=== PATIENT | male | born 1990 | race Caucasian/White ===

== ENCOUNTER 2016-12-14 18:02 | Emergency (ER) | payer BC, OTHER ==
[2016-12-14] MEDS ORDERED: Proparacaine 0.5% Ophth Soln 15 ML Bottle EYELF ONE (18:11)
--- NOTE | 2016-12-14 18:23 | EDM.PDOC ---
ED HPI GENERAL MEDICAL PROBLEM - General Chief Complaint: Eye Problems Stated Complaint: METAL IN LEFT EYE Time Seen by Provider: 12/14/16 18:12 Source of Information: Reports: Patient History Limitations: Reports: No Limitations - History of Present Illness INITIAL COMMENTS - FREE TEXT/NARRATIVE: HISTORY AND PHYSICAL: []26-year-old male presents with a piece of metal in his left eye History of Present Illness: []Patient was grinding on metal got one hour before coming to ER but felt a piece into his eye was pretty aggressive rinsing it out was unable to get the piece out was at the 9 o'clock position Review of Systems: As per history of present illness and below otherwise all systems reviewed and negative. Past medical history: As per history of present illness and as reviewed below otherwise noncontributory. Surgical history: As per history of present illness and as reviewed below otherwise noncontributory. Social history: No reported history of drug or alcohol abuse. Family history: As per history of present illness and as reviewed below otherwise noncontributory. Physical exam: Alert and oriented male answering questions appropriately HEENT: Atraumatic, normocehpalic, pupils reactive, negative for conjunctival pallor or scleral icterus, mucous membranes moist, throat clear, neck supple, nontender, trachea midline. Lungs: Clear to auscultation, breath sounds equal bilaterally, chest non tender. Heart: S1S2, regular, negative for clicks, rubs, or JVD. Abdomen: Soft, nondistended, nontender. Negative for masses or hepatossplenmegaly. Negative for costovertebral tenderness. Pelvis: Stable nontender. Genitourinary: Deferred. Rectal: Deferred Extremities: Atraumatic, negative for cords or calf pain. Neurovascular unremarkable. Neuro: Awake, alert, oriented. Cranial nerves II through XII unremarkable. Cerebellum unremarkable. Motor and sensory unremarkable throughout. Exam nonfocal. Proparacaine was instilled into his eye and then a fluorescein strip Cabrera lamp was utilized small little speck of metal at the 9 o'clock position was removed with a Q-tip. Patient tolerated procedure well Diagnostics: [Cabrera lamp first seen strip/] Therapeutics: [Proparacaine ophthalmic drops/ saline flushes 3] Impression: [Foreign-body to left eye removed home] Plan: [Home Follow us for an ophthalmic ointment 1 inch to lower lid times daily for the next 3-4 days If symptoms worsen your vision changes adversely please return for reevaluation] Definitive disposition and diagnosis as appropriate pending reevaluation and review of above. Onset: Today, Sudden Duration: Hour(s): (1) - Related Data Allergies Allergy/AdvReac Type Severity Reaction Status Date / Time No Known Allergies Allergy Verified 12/14/16 18:06 Past Medical History - Past Health History Medical/Surgical History: Denies Medical/Surgical History Respiratory History: Reports: Other (See Below) Other Respiratory History: Currently on antibiotics for respiratory infection - Infectious Disease History Infectious Disease History: Reports: Chicken Pox Social & Family History - Family History Family Medical History: Noncontributory - Tobacco Use Smoking Status *Q: Current Every Day Smoker Years of Tobacco use: 2 Packs/Tins Daily: 0.5 - Caffeine Use Caffeine Use: Reports: None - Recreational Drug Use Recreational Drug Use: No Recreational Drug Type: Reports: Marijuana/Hashish Recreational Drug Use Frequency: Daily ED ROS GENERAL - Review of Systems Review Of Systems: ROS reveals no pertinent complaints other than HPI. ED EXAM GENERAL W FULL EYE - Physical Exam Exam: See Below (See dictation) Course - Orders/Labs/Meds Meds: Medications Discontinued Medications Generic Name Dose Route Start Last Admin Trade Name Freq PRN Reason Stop Dose Admin Proparacaine HCl 2 ml 12/14/16 18:11 Proparacaine 0.5% Ophth Soln EYELF 12/14/16 18:12 ONETIME ONE Departure - Departure Time of Disposition: 18:33 Disposition: Home, Self-Care 01 Condition: Good Clinical Impression: Foreign body of left eye Qualifiers: Encounter type: initial encounter Qualified Code(s): T15.92XA - Foreign body on external eye, part unspecified, left eye, initial encounter - Discharge Information Instructions: Eye Foreign Body, [id number] Forms: ED Department Discharge Additional Instructions: The following information is given to patients seen in the emergency department who are being discharged to home. This information is to outline your options for follow-up care. We provide all patients seen in our emergency department with a follow-up referral. The need for follow-up, as well as the timing and circumstances, are variable depending upon the specifics of your emergency department visit. If you don't have a primary care physician on staff, we will provide you with a referral. We always advise you to contact your personal physician following an emergency department visit to inform them of the circumstance of the visit and for follow-up with them and/or the need for any referrals to a consulting specialist. The emergency department will also refer you to a specialist when appropriate. This referral assures that you have the opportunity for followup care with a specialist. All of these measure are taken in an effort to provide you with optimal care, which includes your followup. Under all circumstances we always encourage you to contact your private physician who remains a resource for coordinating your care. When calling for followup care, please make the office aware that this follow-up is from your recent emergency room visit. If for any reason you are refused follow-up, please contact the [facility] emergency department at and asked to speak to the emergency department charge nurse. Antibiotic ointment has been applied to your eye please utilizes 3 times a day for the next 3-4 days Your tetanus status is up-to-date Return for follow-up if symptoms worsen
[2016-12-14 18:52] VITALS: BP 112/67
[2016-12-14] MEDS ORDERED: Bacitracin/Polymyxin B Ophth Oint 3.5 GM Tube EYELF SCH (22:00)
== END 2016-12-14 18:45 | disposition home or self-care (01) ==
LOC: MW.ED 18:02
DX: T15.92XA Foreign body on external eye, part unspecified, left eye, initial encounter (principal); F17.210 Nicotine dependence, cigarettes, uncomplicated
CPT/HCPCS: 65205; 99283

== ENCOUNTER 2020-07-29 05:21 | Emergency (ER) | payer BC ==
[2020-07-29] MEDS ORDERED: Sodium Chloride 0.9% 2.5 ML Syringe FLUSH PRN (05:56)
[2020-07-29] MEDS ORDERED: fentaNYL 50 MCG/ML SDV IVPUSH ONE (05:56)
[2020-07-29] MEDS ORDERED: Sodium Chloride 0.9% 10 ML Syringe FLUSH PRN (05:56)
[2020-07-29] MEDS ORDERED: Ondansetron 4 MG/2 ML SDV IVPUSH ONE (05:56)
[2020-07-29] MEDS ORDERED: Sodium Chloride 0.9% 1,000 ML IV ONE (05:56)
--- NOTE | 2020-07-29 05:56 | EDM.PDOC ---
ED HPI GENERAL MEDICAL PROBLEM - General Chief Complaint: General Stated Complaint: HEMMORHOIDS Time Seen by Provider: 07/29/20 05:46 - History of Present Illness INITIAL COMMENTS - FREE TEXT/NARRATIVE: HISTORY AND PHYSICAL: History of present illness: This is a 30-year-old healthy gentleman with no history significant for hypertension, diabetes, liver, lung, kidney problems who presents ER today complaining of rectal pain x5 to 6 days. Patient reports that he self diagnosed himself with hemorrhoids and has been using Preparation H as well as witch kim wipes without any improvement in his discomfort. Patient denies any recent fevers, shakes, chills, nausea, vomiting, diarrhea, dysuria, frequency, urgency, constipation. Patient denies any rectal sex or anal manipulation. Patient denies any prior history of pilonidal abscesses. Patient denies any history of inflammatory bowel disease. Patient denies any prior abdominal or chest surgeries. Patient admits to recreational marijuana use. Patient reports he drinks alcohol approximately once a week. Last alcohol use was yesterday evening. Patient denies tobacco use. Patient has no known drug allergies. Patient is currently not on any medications. Review of systems: As per history of present illness and below otherwise all systems reviewed and negative. Past medical history: As per history of present illness and as reviewed below otherwise noncontrib utory. Surgical history: As per history of present illness and as reviewed below otherwise noncontributory. Social history: No reported history of drug or alcohol abuse. Family history: As per history of present illness and as reviewed below otherwise noncontributory. Physical exam: This patient was seen and evaluated during the 2019 SARS-CoV-2 novel coronavirus pandemic period. Community viral transmission is ongoing at time of this encounter and the emergency department is operating under pandemic response procedures. Constitutional: Patient is oriented to person, place, and time. Appears well- developed and well-nourished. No distress. HEENT: Moist mucous membranes Head: Normocephalic and atraumatic Eyes: Right eye exhibits no discharge. Left eye exhibits no discharge. No scleral icterus Neck: Normal range of motion. No tracheal deviation present. Cardiovascular: Normal rate and regular rhythm. Pulmonary: Effort normal, no respiratory distress. Abdominal: No distention Musculoskeletal: Normal range of motion Neurologic: Alert and oriented to person, place and time. Skin: [place], warm and dry. Psychiatric: Normal mood and affect. Behavior is normal. Judgment and thought content normal. Nursing note and vital signs have been reviewed Rectal exam: Patient with a tender fluctuant appearing mass at approximately the 6 o'clock position at his rectum. This is extremely tender. On rectal exam I am not able to appreciate any significant fluctuance within his internal rectal cavity. Diagnostics: CBC, CMP, CT the abdomen pelvis with IV contrast Therapeutics: Fentanyl 50 mg IV, Zofran 4 mg IV, NSS x1 L Assessment and plan: This is a 30-year-old gentleman who presents ER today with rectal pain x5 days. Patient has been treating himself for presumed hemorrhoids with Preparation H and witch kim pads without any improvement in symptoms. On exam in the ER today it appears that the area of induration is most likely consistent with a possible abscess over an external hemorrhoid. I am not able to appreciate the extent of the abscess but it is right at the external anus. We will obtain labs including a CBC, CMP. We will get a CBC of the abdomen pelvis with IV contrast to evaluate the extent of the abscess. 6:55 am: Care signed over to oncoming physician at [address] scan report and final disposition. Patient likely has a rectal versus perirectal abscess and may need surgical consultation depending on CT scan report. Definitive disposition and diagnosis as appropriate pending reevaluation and review of above. butt Pain Score (Numeric/FACES): 7 - Related Data Allergies Allergy/AdvReac Type Severity Reaction Status Date / Time No Known Allergies Allergy Verified 07/29/20 05:30 Home Meds: Home Meds . [No Known Home Meds] 03/21/18 [History] Past Medical History - Past Health History Medical/Surgical History: Denies Medical/Surgical History HEENT History: Reports: Impaired Vision Other HEENT History: wears glasses Respiratory History: Reports: Other (See Below) Other Respiratory History: Currently on antibiotics for respiratory infection - Infectious Disease History Infectious Disease History: Reports: Chicken Pox, Shingles Social & Family History - Family History Family Medical History: No Pertinent Family History - Tobacco Use Tobacco Use Status *Q: Never Tobacco User - Caffeine Use Caffeine Use: Reports: None - Recreational Drug Use Recreational Drug Use: Yes Recreational Drug Type: Reports: Marijuana/Hashish Recreational Drug Use Frequency: Socially ED ROS GENERAL - Review of Systems Review Of Systems: See Below ED EXAM, GENERAL - Physical Exam Exam: See Below Course - Vital Signs Last Recorded V/S: Last Vital Signs Temp 99.7 F 07/29/20 05:29 Pulse 94 07/29/20 05:29 Resp 16 07/29/20 05:29 BP 114/84 07/29/20 05:29 Pulse Ox 98 07/29/20 05:29 - Orders/Labs/Meds Orders: Active Orders 24 hr Category Date Time Status Abdomen Pelvis w Cont [CT] Stat Exams 07/29/20 05:57 Ordered COMPREHENSIVE METABOLIC PN,CMP [CHEM] Stat Lab 07/29/20 06:12 Received Sodium Chloride 0.9% [Normal Saline] 1,000 ml Med 07/29/20 05:56 Active IV .Bolus Sodium Chloride 0.9% [Saline Flush] Med 07/29/20 05:56 Active 10 ml FLUSH ASDIRECTED PRN Sodium Chloride 0.9% [Saline Flush] Med 07/29/20 05:56 Active 2.5 ml FLUSH ASDIRECTED PRN Saline Lock Insert [OM.PC] Stat Oth 07/29/20 05:57 Ordered Medication Orders Sodium Chloride (Normal Saline) 1,000 mls @ 999 mls/hr IV .Bolus ONE Stop: 07/29/20 06:56 Last Admin: 07/29/20 06:11 Dose: 999 mls/hr Documented by: LASHONDA Sodium Chloride (Sodium Chloride 0.9% 10 Ml Syringe) 10 ml FLUSH ASDIRECTED PRN PRN Reason: Keep Vein Open Last Admin: 07/29/20 06:12 Dose: 10 ml Documented by: LASHONDA Sodium Chloride (Sodium Chloride 0.9% 2.5 Ml Syringe) 2.5 ml FLUSH ASDIRECTED PRN PRN Reason: Keep Vein Open Last Admin: 07/29/20 06:12 Dose: 2.5 ml Documented by: LASHONDA Labs: Laboratory Tests 07/29/20 Range/Units 06:12 WBC 10.65 (4.0-11.0) K/uL RBC 4.64 (4.50-5.90) M/uL Hgb 14.0 (13.0-17.0) g/dL Hct 41.3 (38.0-50.0) % MCV 89.0 (80.0-98.0) fL MCH 30.2 (27.0-32.0) pg MCHC 33.9 (31.0-37.0) g/dL RDW Std Deviation 41.3 (28.0-62.0) fl RDW Coeff of Endy 13 (11.0-15.0) % Plt Count 284 (150-400) K/uL MPV 10.70 (7.40-12.00) fL Neut % (Auto) 77.3 (48.0-80.0) % Lymph % (Auto) 12.5 L (16.0-40.0) % [place] % (Auto) 7.8 (0.0-15.0) % Eos % (Auto) 1.8 (0.0-7.0) % Baso % (Auto) 0.6 (0.0-1.5) % Neut # (Auto) 8.2 H (1.4-5.7) K/uL Lymph # (Auto) 1.3 (0.6-2.4) K/uL [place] # (Auto) 0.8 (0.0-0.8) K/uL Eos # (Auto) 0.2 (0.0-0.7) K/uL Baso # (Auto) 0.1 (0.0-0.1) K/uL Nucleated RBC % 0.0 /100WBC Nucleated RBCs # 0 K/uL Meds: Medications Generic Name Dose Route Start Last Admin Trade Name Freq PRN Reason Stop Dose Admin Sodium Chloride 1,000 mls @ 999 mls/hr 07/29/20 05:56 07/29/20 06:11 Normal Saline IV 07/29/20 06:56 999 mls/hr .Bolus ONE Administration Sodium Chloride 10 ml 07/29/20 05:56 07/29/20 06:12 Sodium Chloride 0.9% 10 Ml Syringe FLUSH 10 ml ASDIRECTED PRN Administration Keep Vein Open Sodium Chloride 2.5 ml 07/29/20 05:56 07/29/20 06:12 Sodium Chloride 0.9% 2.5 Ml Syringe FLUSH 2.5 ml ASDIRECTED PRN Administration Keep Vein Open Discontinued Medications Generic Name Dose Route Start Last Admin Trade Name Freq PRN Reason Stop Dose Admin Fentanyl 50 mcg 07/29/20 05:56 07/29/20 06:12 Fentanyl 50 Mcg/Ml Sdv IVPUSH 07/29/20 05:57 50 mcg ONETIME ONE Administration Ondansetron HCl 4 mg 07/29/20 05:56 07/29/20 06:12 Ondansetron 4 Mg/2 Ml Sdv IVPUSH 07/29/20 05:57 4 mg ONETIME ONE Administration Departure - Departure Time of Disposition: 07:00 Disposition: Still A Patient 30 Condition: Good Clinical Impression: Rectal pain - Discharge Information Referrals: Tatiana Wood DO [Primary Care Provider] - Forms: ED Department Discharge Sepsis Event Note (ED) - Evaluation Sepsis Screening Result: No Definite Risk - Focused Exam Vital Signs: Vital Signs Temp Pulse Resp BP Pulse Ox 07/29/20 05:29 99.7 F 94 16 114/84 98 - My Orders Last 24 Hours: My Active Orders 07/29/20 05:56 Sodium Chloride 0.9% [Normal Saline] 1,000 ml IV .Bolus Sodium Chloride 0.9% [Saline Flush] 10 ml FLUSH ASDIRECTED PRN Sodium Chloride 0.9% [Saline Flush] 2.5 ml FLUSH ASDIRECTED PRN 07/29/20 05:57 Abdomen Pelvis w Cont [CT] Stat Saline Lock Insert [OM.PC] Stat 07/29/20 06:12 COMPREHENSIVE METABOLIC PN,CMP [CHEM] Stat - Assessment/Plan Last 24 Hours: My Active Orders 07/29/20 05:56 Sodium Chloride 0.9% [Normal Saline] 1,000 ml IV .Bolus Sodium Chloride 0.9% [Saline Flush] 10 ml FLUSH ASDIRECTED PRN Sodium Chloride 0.9% [Saline Flush] 2.5 ml FLUSH ASDIRECTED PRN 07/29/20 05:57 Abdomen Pelvis w Cont [CT] Stat Saline Lock Insert [OM.PC] Stat 07/29/20 06:12 COMPREHENSIVE METABOLIC PN,CMP [CHEM] Stat
[2020-07-29 06:48] LABS: BLOOD UREA NITROGEN,BUN 12 mg/dL (7.0-18.0); CARBON DIOXIDE,CO2 29.8 mmol/L (21.0-32.0); CHLORIDE,CL 103 mmol/L (98-107); GLUCOSE RANDOM 91 mg/dL (74-106); SODIUM,NA 138 mmol/L (136-148)
[2020-07-29] MEDS ORDERED: Iopamidol 755 MG/ML 500 ML Multipack Bottle IVPUSH STA (07:07)
--- NOTE | 2020-07-29 07:54 | CT ---
INDICATION: Rectal/perirectal abscess. TECHNIQUE: CT abdomen and pelvis acquired with 100 cc Isovue 370 IV contrast. COMPARISON: None. FINDINGS: Lower chest: Unremarkable. Liver: Unremarkable. Normal in size and attenuation. No masses. Gallbladder and bile ducts: Unremarkable. No stones or inflammation. No biliary dilatation. Pancreas: Unremarkable. No mass or inflammation. Spleen: Unremarkable. Normal in size. No masses. Adrenal glands: Unremarkable. No nodules. Kidneys: Single small nonobstructive right renal stone. Few small benign-appearing cysts. Otherwise unremarkable. GI tract: There is a 2 x 1 cm thick-walled fluid collection posterior to the rectum in the midline as visualized on series 201, image 170. This is consistent with a perirectal abscess. Normal appendix. Vasculature: Unremarkable. Mesenteric arteries are patent. Lymph nodes: No lymphadenopathy. Omentum/Peritoneum/Abdominal Wall: Unremarkable. No sign of mass or infiltration. No free air or significant free fluid. Pelvis: Unremarkable. Bones: Unremarkable for age. IMPRESSION: 2 x 1 cm posterior midline perirectal abscess. Remainder of the exam is unremarkable. Please note that all CT scans at this facility use dose modulation, iterative reconstruction, and/or weight-based dosing when appropriate to reduce radiation dose to as low as reasonably achievable. Dictated by Misael Mcghee MD @ Jul 29 2020 7:47AM Signed by Dr. Misael Mcghee @ Jul 29 2020 7:53AM
[2020-07-29] MEDS ORDERED: Lidocaine 1% 10 ML MDV INFILT ONE (08:26)
[2020-07-29] MEDS ORDERED: Cephalexin 500 MG Cap PO ONE (08:43)
[2020-07-29] MEDS ORDERED: Sulfamethoxazole/Trimethoprim 800-160 MG Tab PO ONE (08:43)
--- NOTE | 2020-07-29 08:49 | EDM.PDOC ---
ED HPI GENERAL MEDICAL PROBLEM - General Chief Complaint: General Stated Complaint: HEMMORHOIDS Time Seen by Provider: 07/29/20 05:46 Source of Information: Reports: Patient History Limitations: Reports: No Limitations - History of Present Illness INITIAL COMMENTS - FREE TEXT/NARRATIVE: HISTORY AND PHYSICAL: History of present illness: This is a 30-year-old healthy gentleman with no history significant for hypertension, diabetes, liver, lung, kidney problems who presents ER today complaining of rectal pain x5 to 6 days. Patient reports that he self diagnosed himself with hemorrhoids and has been using Preparation H as well as witch kim wipes without any improvement in his discomfort. Patient denies any recent fevers, shakes, chills, nausea, vomiting, diarrhea, dysuria, frequency, urgency, constipation. Patient denies any rectal sex or anal manipulation. Patient denies any prior history of pilonidal abscesses. Patient denies any history of inflammatory bowel disease. Patient denies any prior abdominal or chest surgeries. Patient admits to recreational marijuana use. Patient reports he drinks alcohol approximately once a week. Last alcohol use was yesterday evening. Patient denies tobacco use. Patient has no known drug allergies. Patient is currently not on any medications. Review of systems: As per history of present illness and below otherwise all systems reviewed and negative. Past medical history: As per history of present illness and as reviewed below otherwise noncontributory. Surgical history: As per history of present illness and as reviewed below otherwise noncontributory. Social history: No reported history of drug or alcohol abuse. Family history: As per history of present illness and as reviewed below otherwise noncont ributory. Physical exam: This patient was seen and evaluated during the 2019 SARS-CoV-2 novel coronavirus pandemic period. Community viral transmission is ongoing at time of this encounter and the emergency department is operating under pandemic response procedures. Constitutional: Patient is oriented to person, place, and time. Appears well- developed and well-nourished. No distress. HEENT: Moist mucous membranes Head: Normocephalic and atraumatic Eyes: Right eye exhibits no discharge. Left eye exhibits no discharge. No scleral icterus Neck: Normal range of motion. No tracheal deviation present. Cardiovascular: Normal rate and regular rhythm. Pulmonary: Effort normal, no respiratory distress. Abdominal: No distention Musculoskeletal: Normal range of motion Neurologic: Alert and oriented to person, place and time. Skin: Mcgrew, warm and dry. Psychiatric: Normal mood and affect. Behavior is normal. Judgment and thought content normal. Nursing note and vital signs have been reviewed Rectal exam: Patient with a tender fluctuant appearing mass at approximately the 6 o'clock position at his rectum. This is extremely tender. On rectal exam I am not able to appreciate any significant fluctuance within his internal rectal cavity. Diagnostics: CBC, CMP, CT the abdomen pelvis with IV contrast Therapeutics: Fentanyl 50 mg IV, Zofran 4 mg IV, NSS x1 L Assessment and plan: This is a 30-year-old gentleman who presents ER today with rectal pain x5 days. Patient has been treating himself for presumed hemorrhoids with Preparation H and witch kim pads without any improvement in symptoms. On exam in the ER today it appears that the area of induration is most likely consistent with a possible abscess over an external hemorrhoid. I am not able to appreciate the extent of the abscess but it is right at the external anus. We will obtain labs including a CBC, CMP. We will get a CBC of the abdomen pelvis with IV contrast to evaluate the extent of the abscess. 6:55 am: Care signed over to oncoming physician at [address] scan report and final disposition. Patient likely has a rectal versus perirectal abscess and may need surgical consultation depending on CT scan report. Definitive disposition and diagnosis as appropriate pending reevaluation and review of above. butt Pain Score (Numeric/FACES): 7 - Related Data Allergies Allergy/AdvReac Type Severity Reaction Status Date / Time No Known Allergies Allergy Verified 07/29/20 05:30 Home Meds: Home Meds Sulfamethoxazole/Trimethoprim [Bactrim Ds Tablet] 1 each PO BID 5 Days #10 tablet 07/29/20 [Rx] cephALEXin [Keflex] 500 mg PO Q6HR 5 Days #20 cap 07/29/20 [Rx] Past Medical History - Past Health History Medical/Surgical History: Denies Medical/Surgical History HEENT History: Reports: Impaired Vision Other HEENT History: wears glasses Respiratory History: Reports: Other (See Below) Other Respiratory History: Currently on antibiotics for respiratory infection - Infectious Disease History Infectious Disease History: Reports: Chicken Pox, Shingles Social & Family History - Family History Family Medical History: No Pertinent Family History - Tobacco Use Tobacco Use Status *Q: Never Tobacco User - Caffeine Use Caffeine Use: Reports: None - Recreational Drug Use Recreational Drug Use: Yes Recreational Drug Type: Reports: Marijuana/Hashish Recreational Drug Use Frequency: Socially ED ROS GENERAL - Review of Systems Review Of Systems: See Below ED EXAM, GENERAL - Physical Exam Exam: See Below Free Text/Narrative:: HISTORY AND PHYSICAL: History of present illness: This is a 30-year-old healthy gentleman with no history significant for hypertension, diabetes, liver, lung, kidney problems who presents ER today complaining of rectal pain x5 to 6 days. Patient reports that he self diagnosed himself with hemorrhoids and has been using Preparation H as well as witch kim wipes without any improvement in his discomfort. Patient denies any recent fevers, shakes, chills, nausea, vomiting, diarrhea, dysuria, frequency, urgency, constipation. Patient denies any rectal sex or anal manipulation. Patient denies any prior history of pilonidal abscesses. Patient denies any history of inflammatory bowel disease. Patient denies any prior abdominal or chest surgeries. Patient admits to recreational marijuana use. Patient reports he drinks alcohol approximately once a week. Last alcohol use was yesterday evening. Patient denies tobacco use. Patient has no known drug allergies. Patient is currently not on any medications. Review of systems: As per history of present illness and below otherwise all systems reviewed and negative. Past medical history: As per history of present illness and as reviewed below otherwise noncontributory. Surgical history: As per history of present illness and as reviewed below otherwise noncontributory. Social history: No reported history of drug or alcohol abuse. Family history: As per history of present illness and as reviewed below otherwise noncontributory. Physical exam: This patient was seen and evaluated during the 2019 SARS-CoV-2 novel coronavirus pandemic period. Community viral transmission is ongoing at time of this encounter and the emergency department is operating under pandemic response procedures. Constitutional: Patient is oriented to person, place, and time. Appears well- developed and well-nourished. No distress. HEENT: Moist mucous membranes Head: Normocephalic and atraumatic Eyes: Right eye exhibits no discharge. Left eye exhibits no discharge. No scleral icterus Neck: Normal range of motion. No tracheal deviation present. Cardiovascular: Normal rate and regular rhythm. Pulmonary: Effort normal, no respiratory distress. Abdominal: No distention Musculoskeletal: Normal range of motion Neurologic: Alert and oriented to person, place and time. Skin: Mcgrew, warm and dry. Psychiatric: Normal mood and affect. Behavior is normal. Judgment and thought content normal. Nursing note and vital signs have been reviewed Rectal exam: Patient with a tender fluctuant appearing mass at approximately the 6 o'clock position at his rectum. This is extremely tender. On rectal exam I am not able to appreciate any significant fluctuance within his internal rectal cavity. Diagnostics: CBC, CMP, CT the abdomen pelvis with IV contrast Therapeutics: Fentanyl 50 mg IV, Zofran 4 mg IV, NSS x1 L Assessment and plan: This is a 30-year-old gentleman who presents ER today with rectal pain x5 days. Patient has been treating himself for presumed hemorrhoids with Preparation H and witch kim pads without any improvement in symptoms. On exam in the ER today it appears that the area of induration is most likely consistent with a possible abscess over an external hemorrhoid. I am not able to appreciate the extent of the abscess but it is right at the external anus. We will obtain labs including a CBC, CMP. We will get a CBC of the abdomen pelvis with IV contrast to evaluate the extent of the abscess. 6:55 am: Care signed over to oncoming physician at [address] scan report and final disposition. Patient likely has a rectal versus perirectal abscess and may need surgical consultation depending on CT scan report. Definitive disposition and diagnosis as appropriate pending reevaluation and review of above. ED GENERAL MEDICAL PROCEDURES - Additional/Other Procedure(s) Other (Free Text) Procedure(s): Patient had I&D done of the perirectal abscess. Patient signed consent a timeout was performed as well. Abscess related into the cyst o'clock position. We used 1% lidocaine no epi. Use 11 blade with small incision good amount of pus return. Patient was packed. Patient tolerated procedure well. Course - Vital Signs Last Recorded V/S: Last Vital Signs Temp 99.7 F 07/29/20 05:29 Pulse 79 07/29/20 07:15 Resp 15 07/29/20 07:15 BP 95/46 L 07/29/20 07:15 Pulse Ox 97 07/29/20 07:15 - Orders/Labs/Meds Orders: Active Orders 24 hr Category Date Time Status Sodium Chloride 0.9% [Saline Flush] Med 07/29/20 05:56 Active 10 ml FLUSH ASDIRECTED PRN Sodium Chloride 0.9% [Saline Flush] Med 07/29/20 05:56 Active 2.5 ml FLUSH ASDIRECTED PRN Saline Lock Insert [OM.PC] Stat Oth 07/29/20 05:57 Ordered Medication Orders Sodium Chloride (Sodium Chloride 0.9% 10 Ml Syringe) 10 ml FLUSH ASDIRECTED PRN PRN Reason: Keep Vein Open Last Admin: 07/29/20 06:12 Dose: 10 ml Documented by: LASHONDA Sodium Chloride (Sodium Chloride 0.9% 2.5 Ml Syringe) 2.5 ml FLUSH ASDIRECTED PRN PRN Reason: Keep Vein Open Last Admin: 07/29/20 06:12 Dose: 2.5 ml Documented by: LASHONDA Labs: Laboratory Tests 07/29/20 07/29/20 Range/Units 06:12 06:12 WBC 10.65 (4.0-11.0) K/uL RBC 4.64 (4.50-5.90) M/uL Hgb 14.0 (13.0-17.0) g/dL Hct 41.3 (38.0-50.0) % MCV 89.0 (80.0-98.0) fL MCH 30.2 (27.0-32.0) pg MCHC 33.9 (31.0-37.0) g/dL RDW Std Deviation 41.3 (28.0-62.0) fl RDW Coeff of Nedy 13 (11.0-15.0) % Plt Count 284 (150-400) K/uL MPV 10.70 (7.40-12.00) fL Neut % (Auto) 77.3 (48.0-80.0) % Lymph % (Auto) 12.5 L (16.0-40.0) % [place]berson % (Auto) 7.8 (0.0-15.0) % Eos % (Auto) 1.8 (0.0-7.0) % Baso % (Auto) 0.6 (0.0-1.5) % Neut # (Auto) 8.2 H (1.4-5.7) K/uL Lymph # (Auto) 1.3 (0.6-2.4) K/uL [place]on # (Auto) 0.8 (0.0-0.8) K/uL Eos # (Auto) 0.2 (0.0-0.7) K/uL Baso # (Auto) 0.1 (0.0-0.1) K/uL Nucleated RBC % 0.0 /100WBC Nucleated RBCs # 0 K/uL Sodium 138 (136-148) mmol/L Potassium 4.0 (3.5-5.1) mmol/L Chloride 103 (98-107) mmol/L Carbon Dioxide 29.8 (21.0-32.0) mmol/L BUN 12 (7.0-18.0) mg/dL Creatinine 1.1 (0.8-1.3) mg/dL Est Cr Clr Drug Dosing 87.81 mL/min Estimated GFR (MDRD) > 60.0 ml/min Glucose 91 (74-106) mg/dL Calcium 8.6 (8.5-10.1) mg/dL Total Bilirubin 1.4 H (0.2-1.0) mg/dL AST 16 (15-37) IU/L ALT 23 (14-63) IU/L Alkaline Phosphatase 88 (46-116) U/L Total Protein 7.4 (6.4-8.2) g/dL Albumin 3.9 (3.4-5.0) g/dL Globulin 3.5 (2.6-4.0) g/dL Albumin/Globulin Ratio 1.1 (0.9-1.6) Meds: Medications Generic Name Dose Route Start Last Admin Trade Name Freq PRN Reason Stop Dose Admin Sodium Chloride 10 ml 07/29/20 05:56 07/29/20 06:12 Sodium Chloride 0.9% 10 Ml Syringe FLUSH 10 ml ASDIRECTED PRN Administration Keep Vein Open Sodium Chloride 2.5 ml 07/29/20 05:56 07/29/20 06:12 Sodium Chloride 0.9% 2.5 Ml Syringe FLUSH 2.5 ml ASDIRECTED PRN Administration Keep Vein Open Discontinued Medications Generic Name Dose Route Start Last Admin Trade Name Freq PRN Reason Stop Dose Admin Cephalexin 500 mg 07/29/20 08:43 Cephalexin 500 Mg Cap PO 07/29/20 08:44 ONETIME ONE Fentanyl 50 mcg 07/29/20 05:56 07/29/20 06:12 Fentanyl 50 Mcg/Ml Sdv IVPUSH 07/29/20 05:57 50 mcg ONETIME ONE Administration Sodium Chloride 1,000 mls @ 999 mls/hr 07/29/20 05:56 07/29/20 06:11 Normal Saline IV 07/29/20 06:56 999 mls/hr .Bolus ONE Administration Iopamidol 100 ml 07/29/20 07:07 07/29/20 07:08 Iopamidol 755 Mg/Ml 500 Ml Multipack Bottle IVPUSH 07/29/20 07:08 100 ml ONETIME STA Administration Lidocaine HCl 10 ml 07/29/20 08:26 07/29/20 08:39 Lidocaine 1% 10 Ml Mdv INFILT 07/29/20 08:27 Not Given ONETIME ONE Lidocaine HCl 5 ml 07/29/20 08:29 07/29/20 08:30 Lidocaine 1% 5 Ml Sdv INJECT 07/29/20 08:30 5 ml ONETIME ONE Administration Lidocaine HCl Confirm 07/29/20 08:28 07/29/20 08:39 Lidocaine 1% 5 Ml Sdv Administered 07/29/20 08:29 Not Given Dose 5 ml .ROUTE .STK-MED ONE Ondansetron HCl 4 mg 07/29/20 05:56 07/29/20 06:12 Ondansetron 4 Mg/2 Ml Sdv IVPUSH 07/29/20 05:57 4 mg ONETIME ONE Administration Trimethoprim/Sulfamethoxazole 1 tab 07/29/20 08:43 Sulfamethoxazole/Trimethoprim 800-160 Mg Tab PO 07/29/20 08:44 ONETIME ONE - Re-Assessments/Exams Free Text/Narrative Re-Assessment/Exam: 07/29/20 08:46 Patient was found to me by Dr. Hoskins pending CT scan for possible abscess. Patient had a perirectal abscess. We called spoke to surgery and due to ORP now elected to drain the abscess in the ER. There was a good amount of pus to return. Patient tolerated these well and will be discharged home on antibiotics and can follow-up with surgery tomorrow for wound check. Departure - Departure Time of Disposition: 08:47 Disposition: Home, Self-Care 01 Condition: Good Clinical Impression: Rectal pain, Perirectal abscess - Discharge Information *PRESCRIPTION DRUG MONITORING PROGRAM REVIEWED*: Not Applicable *COPY OF PRESCRIPTION DRUG MONITORING REPORT IN PATIENT PIERRE: Not Applicable Prescriptions: Sulfamethoxazole/Trimethoprim [Bactrim Ds Tablet] 1 each PO BID 5 Days #10 tablet cephALEXin [Keflex] 500 mg PO Q6HR 5 Days #20 cap Referrals: Tatiana Wood DO [Primary Care Provider] - Forms: ED Department Discharge Additional Instructions: The following information is given to patients seen in the emergency department who are being discharged to home. This information is to outline your options for follow-up care. We provide all patients seen in our emergency department with a follow-up referral. The need for follow-up, as well as the timing and circumstances, are variable depending upon the specifics of your emergency department visit. If you don't have a primary care physician on staff, we will provide you with a referral. We always advise you to contact your personal physician following an emergency department visit to inform them of the circumstance of the visit and for follow-up with them and/or the need for any referrals to a consulting specialist. The emergency department will also refer you to a specialist when appropriate. This referral assures that you have the opportunity for follow-up care with a specialist. All of these measure are taken in an effort to provide you with optimal care, which includes your follow-up. Under all circumstances we always encourage you to contact your private physician who remains a resource for coordinating your care. When calling for follow-up care, please make the office aware that this follow-up is from your recent emergency room visit. If for any reason you are refused follow-up, please contact the [facility] Emergency Department at and asked to speak to the emergency department charge nurse. Please follow up with your primary care physician. If you do not have a primary care physician, see below: [facility] - General Surgery Professional Building [address] [place] [address], [address] [place] [address] We would like for you to call the number above today and also tomorrow be seen by them to have your wound checked. We did an incision and drainage of the abscess around your rectum. There was good amount of pus that came out. We will place you on antibiotics. Please take those for the next 5 days. If you have any fevers, chills increased pain or swelling please return to the ED. Again would like for you to follow-up tomorrow at this clinic or with any other physicians for wound check. Sepsis Event Note (ED) - Evaluation Sepsis Screening Result: No Definite Risk - Focused Exam Vital Signs: Vital Signs Temp Pulse Resp BP Pulse Ox 07/29/20 07:15 79 15 95/46 L 97 07/29/20 05:29 99.7 F 94 16 114/84 98
[2020-07-29 09:35] VITALS: BP 130/80; PULSE 60
== END 2020-07-29 09:37 | disposition home or self-care (01) ==
LOC: MW.ED 05:21
DX: K61.1 Rectal abscess (principal)
CPT/HCPCS: 36415; 46040; 74177; 80053; 85025; 96374; 96375; 99284; A9270; J2405; J3010; J7030; Q9967

== ENCOUNTER 2025-02-15 11:13 | Emergency (ER) | payer BC ==
[2025-02-15 12:01] LABS: BASOPHILS ABSOLUTE AUTO 0.07 K/uL (0.00-0.20); BASOPHILS PERCENT AUTO 1.0 % (0.0-1.0); EOSINOPHILS ABSOLUTE AUTO 0.37 K/uL (0.00-0.45); EOSINOPHILS PERCENT AUTO 5.4 % (0.0-6.0); IMMATURE GRAN ABSOLUTE AUTO 0.02 K/uL (0.00-0.05); IMMATURE GRAN PERCENT AUTO 0.3 % (0.0-0.4); LYMPHOCYTES ABSOLUTE AUTO 2.75 K/uL (1.00-4.80); LYMPHOCYTES PERCENT AUTO 40.5 % (24.0-44.0); MEAN PLATELET VOLUME 10.2 fL (9.4-12.4); MONOCYTES ABSOLUTE AUTO 0.60 K/uL (0.00-0.80); MONOCYTES PERCENT AUTO 8.8 % (0.0-8.0); NEUTROPHILS ABSOLUTE AUTO 2.98 K/uL (1.80-7.70); NEUTROPHILS PERCENT AUTO 44.0 % (41.0-71.0); NRBC ABSOLUTE 0.00 K/uL (0.00-0.02); NRBC PERCENT 0.0 /100WBC (0.0-0.2); PLATELET COUNT,PLT 300 K/uL (150-400); RED BLOOD CELL COUNT 5.16 M/uL (4.52-5.90); WHITE BLOOD CELL COUNT,WBC 6.79 K/uL (3.9-11.3)
[2025-02-15] MEDS: Ketorolac 30 MG/ML SDV IVPUSH ONE (12:05)
[2025-02-15] MEDS: Ondansetron 4 MG/2 ML SDV IVPUSH ONE (12:05)
[2025-02-15 12:22] LABS: A/G RATIO 1.5 (0.9-1.6); ALANINE AMINOTRANSFERASE,ALT 40.0 IU/L (14-63); ASPARTATE AMNIOTRANSFERASE,AST 25.0 IU/L (15-37); BILIRUBIN TOTAL 1.2 mg/dL (0.2-1.0); BLOOD UREA NITROGEN,BUN 8.0 mg/dL (7.0-18.0); CARBON DIOXIDE,CO2 27.6 mmol/L (21.0-32.0); CHLORIDE,CL 103.0 mmol/L (98-107); CREATININE 1.1 mg/dL (0.8-1.3); EST CRCL DRUG DOSING (CG) 89.34 mL/min; ESTIMATED GFR 89.0 mL/min (>60); GLUCOSE RANDOM 98.0 mg/dL (74-106); POTASSIUM,K 3.9 mmol/L (3.5-5.1); PROTEIN TOTAL,TP 7.1 g/dL (6.4-8.2); SODIUM,NA 142.0 mmol/L (136-148)
[2025-02-15 12:39] LABS: APPEARANCE,URINE SLT CLOUDY; GLUCOSE,URINE 100 mg/dL (NEGATIVE); OCCULT BLOOD,URINE LARGE (NEGATIVE)
[2025-02-15 15:33] VITALS: BP 129/82; PULSE 53
== END 2025-02-15 15:42 | disposition home or self-care (01) ==
LOC: MW.ED 11:13
DX: N13.2 Hydronephrosis with renal and ureteral calculous obstruction (principal); Z75.3 Unavailability and inaccessibility of health-care facilities
CPT/HCPCS: 36415; 74176; 80053; 81001; 83690; 85025; 93005; 96361; 96374; 96375; 96376; 99284; A9270; J1885; J2270; J2405; J7030; 93010